=== PATIENT | female | born 2000 | race Caucasian/White ===

== ENCOUNTER 2023-04-12 12:53 | Outpatient (CLI) | payer MEDICAID, SELFPAY ==
[2023-04-12 22:57] LABS: Free T4 Free Thyroxine* 0.94 ng/dL (0.70-1.85)
== END 2023-04-12 12:54 | disposition home or self-care (01) ==
LOC: FRMREF 12:53
PROVIDERS: PCP Physician Assistant Medical; Visit Provider Physician Assistant Medical
DX: N91.2 Amenorrhea, unspecified (principal)
CPT/HCPCS: 84439; 84443

== ENCOUNTER 2023-05-04 15:41 | Outpatient (CLI) | payer MEDICAID, SELFPAY ==
--- NOTE | 2023-05-04 16:00 | CRLHL7_ITS ---
For Patients: As a result of the Century Cures Act, medical imaging exams and procedure reports are released immediately into your electronic medical record. You may view this report before your referring provider. If you have questions, please contact your health care provider. INDICATION: amenorrhea COMPARISON: none TECHNIQUE: 2D fraire scale and color Doppler images were acquired of the pelvis using a transabdominal and transvaginal approach. FINDINGS: Sonographic images demonstrate a normal size and smooth outer contour of the uterus. Uterus measures 6.7 cm in length by 2.5 cm in AP diameter by 2.8 cm in transverse dimension. The myometrium has a normal uniform echotexture. The endometrial lining appears normal and measures 6 mm in composite thickness. The right ovary measures 2.8 x 1.9 x 1.9 cm in size and the left ovary is not visualized. The right ovary demonstrates normal arterial and venous blood flow on color Doppler analysis. There are no suspicious fluid collections within the cul-de-sac. IMPRESSION: Endometrial thickness 6 millimeters. No endometrial fluid. No uterine fibroid. Dictated by Logan Alston MD @ 05/05/2023 8:29:02 AM (Electronically Signed)
== END 2023-05-04 15:42 | disposition home or self-care (01) ==
LOC: US 15:42
PROVIDERS: PCP Physician Assistant Medical; Visit Provider Physician Assistant Medical
DX: N91.2 Amenorrhea, unspecified (principal); R93.89 Abnormal findings on diagnostic imaging of other specified body structures
CPT/HCPCS: 76830; 76856

== ENCOUNTER 2023-05-08 10:19 | Outpatient (CLI) | payer MEDICAID, SELFPAY | END 2023-05-08 10:20 | disposition home or self-care (01) | PROVIDERS: PCP Physician Assistant Medical; Visit Provider Obstetrics & Gynecology | DX: N91.2 Amenorrhea, unspecified (principal); E03.9 Hypothyroidism, unspecified | CPT/HCPCS: 82627; 83498; 84270; 84402; 84403; 84443 ==

== ENCOUNTER 2023-08-22 13:06 | Outpatient (CLI) | payer MEDICAID, SELFPAY | END 2023-08-22 13:07 | disposition home or self-care (01) | PROVIDERS: PCP Physician Assistant Medical; Visit Provider Physician Assistant Medical | DX: R53.83 Other fatigue (principal); E03.9 Hypothyroidism, unspecified; N91.2 Amenorrhea, unspecified; F41.8 Other specified anxiety disorders; R79.89 Other specified abnormal findings of blood chemistry | CPT/HCPCS: 80053; 82306; 82607; 82728; 84443 ==

== ENCOUNTER 2024-07-11 12:43 | Outpatient (RCR) | payer MEDICAID, SELFPAY ==
--- NOTE | 2024-07-12 09:28 | PT.OPE ---
[facility] Out[facility] Eval Start: 07/11/24 13:57 Freq: Status: Active Protocol: Document 07/11/24 13:57 TREASURE (Rec: 07/11/24 13:59 TREASURE [id number]) E-signed By Erik Nazario DPT, MS Physical Therapy Outpatient Evaluation Insurance Information Insurance Name Medicaid,[employer] Medical Diagnosis Pain in right ankle and joints of right foot; pain in left ankle and joints of left foot Treating Diagnosis Static and dynamic imbalance, gait dysfunction, B LE NM control impairments, decreased B LE and LS flexibility, and B LE and core weakness Subjective Subjective Pt is a 23-year-old female who presents to PT with c/o chronic B ankle and hip pain of insidious origin over the past 1-2 years. Describes sxs as a burning and aching in her lateral foot and hips with walking >0.5 miles and extended standing. Begins walking on the outside and ball of her feet when she experiences elevated sxs. Notes B high arches with custom orthotics being helpful . 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 Hopes to improve sxs before she returns to work and to be able to increase activity levels. PT tx 5+ years ago helpful to decrease similar sxs. AGGR factors: standing, walking >.5 mile, uneven surfaces. ALLEV factors: rest. Pain Comments 0-6/10 Current Work Status Unemployed Precautions Therapy Limitations/Systems Review Not Limited Assessment Assessment/Impression Objectively pt displays static and dynamic imbalance, gait dysfunction, B LE NM control impairments, decreased B LE and LS flexibility, and B LE and core weakness. Imbalance combined with B LE weakness appears to be leading to gait compensations and B ankle sxs. Pt responded well to stretching, balance and LE strengthening exercises with decreased B ankle and hip sxs following. She will benefit from continued skilled PT intervention to address these limitations. Primary Functional Limitations Standing, walking >.5 mile, uneven surfaces Plan of Care Rehabilitation Potential Excellent Physical Therapy Goals FCI to be completed within 10 weeks: 1. Pt will be independent with HEP and self-management of symptoms 2. Pt will be able to walk for >20 min with no elevation in L LE sxs to improve cardiovascular health and perform future work duties. 3. Pt will display improved B hip flex, ext, ABD and eversion strength of >/= 4+/5 to improve tolerance to work and daily activities. 4. Pt will display improved B SLS to minimal sway on firm and compliant surfaces to improve safety with functional daily activities. Coordination/Communication With Referral Source Treatment Plan/Direct Interventions Neuromuscular Re-ed, Therapeutic Exercises Frequency/Duration 1x per week for 6-10 visits Patient Will Be Discharged From Therapy Completion of LTG(s),Skills Plateau,Independent w/HEP, Independently Progressing Evaluation Billing Untimed Code Treatment Minutes 24 Complexity Moderate Certification Information Initial Certification Date 07/11/24 Ending Certification Date 09/09/24 Provider Signature Required Yes Provider Signature Shows Agreement With POC & Medical Necessity Physician NPI Number Write NPI# Here Physician Comment/Change : Physician Signature & Date Requested Please Sign/Date Here
== END 2024-11-08 23:59 | disposition home or self-care (01) ==
PROVIDERS: PCP Physician Assistant Medical; Visit Provider Physician Assistant Medical
DX: M25.571 Pain in right ankle and joints of right foot (principal); M25.572 Pain in left ankle and joints of left foot; R26.89 Other abnormalities of gait and mobility; R29.898 Other symptoms and signs involving the musculoskeletal system; R53.1 Weakness; Z51.89 Encounter for other specified aftercare
CPT/HCPCS: 97110; 97162

== ENCOUNTER 2024-09-04 08:37 | Outpatient (CLI) | payer MEDICAID, SELFPAY | END 2024-09-04 08:38 | disposition home or self-care (01) | PROVIDERS: PCP Physician Assistant Medical; Visit Provider Obstetrics & Gynecology | DX: E03.9 Hypothyroidism, unspecified (principal); Z12.4 Encounter for screening for malignant neoplasm of cervix; Z13.220 Encounter for screening for lipoid disorders | CPT/HCPCS: 80061; 84443; 87624; 87625; 88141; 88142 ==